=== PATIENT | male | born 1960 | race African-American/Black ===

== ENCOUNTER 2019-04-16 06:52 | Day surgery (SDC) | payer OTHER ==
[~2019-04-16] VITALS: Ht 175.3 cm; Wt 103.0 kg
[~2019-04-16 06:52] MED LIST: GLUCOPHAGE500 MG/TAB PO; LIPITOR 10MG10 MG PO; NAPROSYN500 MG PO; PRINIVIL10 MG PO
[2019-04-16 07:04] VITALS: BP 116/87; PULSE 82; TEMP 97.8
[2019-04-16 08:05] VITALS: BP 109/82; PULSE 70; TEMP 97
[2019-04-16 08:20] VITALS: BP 107/73; PULSE 67
[2019-04-16 08:35] VITALS: BP 108/77; PULSE 63
[2019-04-16 08:50] VITALS: BP 107/77; PULSE 63
--- NOTE | 2019-04-16 11:35 | NUR ---
PT RETURNED FROM ENDO PROCUDURE SUITE PER CART INTO BAY# 4 PT ALERT AND SLEEPY, WOULD AROUSE TO NAME. PT AMBULATED WITHOUT DIFFICULTY FROM CART TO ENDO CHAIR WITH MINIMAL ASSIST. LUNGS CLEAR, HRR, BOWEL SOUNDS HYPOACTIVE. CRACKERS AND WATER WERE GIVEN HIM TO TRY. AT BEDSIDE, WILL CONT TO MONITOR PROGRESS, CALL LIGHT IN REACH.
--- NOTE | 2019-04-16 11:41 | NUR ---
PT TOLERATING FOOD AND FLUIDS WITHOUT DIFFICULTY. DENIES NAUSEA, VOMITING OR PAIN. WILL MONITOR PROGRESS.
--- NOTE | 2019-04-16 11:43 | NUR ---
PT A/OX3, DENIES PAIN OR NAUSEA. TOLERATES FOOD AND FLUIDS WITHOUT PROBLEM. IV REMOVED TO RIGHT WRIST WITHOUT DIFFICULTY. DISCHARGE INSTRUCTIONS GIVEN TO PT, VOICES UNDERSTANDING. PT DISCHARGED TO FAMILY CAR, PER WC, , BLAS DRIVING.
== END 2019-04-16 09:00 | disposition home or self-care (01) ==
LOC: SDCO 06:52
DX: Z12.11 Encounter for screening for malignant neoplasm of colon (principal); E11.9 Type 2 diabetes mellitus without complications; Z86.010 Personal history of colon polyps; Z87.891 Personal history of nicotine dependence
CPT/HCPCS: J2250; J2405; J3010; J7030

== ENCOUNTER → 2019-11-30 | Outpatient (CLI) | payer OTHER | LOC: COL.RAD 09:59 | DX: M48.02 Spinal stenosis, cervical region (principal); M40.50 Lordosis, unspecified, site unspecified; M50.121 Cervical disc disorder at C4-C5 level with radiculopathy; M25.78 Osteophyte, vertebrae ==

== ENCOUNTER 2020-02-01 07:49 | Outpatient (RCR) | payer OTHER | END 2020-04-24 | disposition home or self-care (01) | LOC: WSC | DX: M48.02 Spinal stenosis, cervical region (principal); G56.21 Lesion of ulnar nerve, right upper limb ==

== ENCOUNTER → 2024-01-16 | Outpatient (CLI) | payer OTHER ==
[~2024-01-16] MED LIST changes: +LIPITOR 40MG TA40 MG PO; +MASON NATURAL2000 IU PO; +NESINA25 PO; +PRINIVIL40 MG PO; +PROTONIX 40MG T40 MG PO; +SYNJARDY 12.5-1 EACH PO
== END ==
LOC: COL.RAD 09:04
DX: M21.612 Bunion of left foot (principal); Z98.890 Other specified postprocedural states